=== PATIENT | male | born 1955 | race Caucasian/White ===

== ENCOUNTER 2017-02-27 13:11 | Day surgery (SDC) | payer OTHER ==
[~2017-02-27] VITALS: Ht 185.4 cm; Wt 95.1 kg
[2017-02-27] MEDS ORDERED: PROPOFOL 20 ML ONE (13:27)
[2017-02-27 13:59] VITALS: Ht 185.4 cm; Wt 95.1 kg
[2017-02-27] MEDS ORDERED: NO MEDS. (14:08)
--- NOTE | 2017-02-27 14:29 | OPPN ---
Date/Time of Note Date/Time of Note DATE: 02/27/17 TIME: 14:26 Proc Note GI Procedure Date 02/27/17 Indication: screening/surveillance Pre-procedure Diagnosis r/o colon polyps Post-procedure Diagnosis hemorrhoids Procedure Performed: Colonoscopy Surgeon see signature line Cake Icer none Anesthesia Type: MAC Anesthesiologist: GIA HICKS MD Tourniquet Time none EBL none Transfusion required none Biopsy 1: no0ne Grafts/Implants none Tubes/Drains none Complication(s) none Disposition: PACU Procedure Description colonoscopy done with MAC hemorrhoids noted ERICH VELEZ MD Feb 27, 2017 14:29
--- NOTE | 2017-02-27 14:29 | OPPN ---
Date/Time of Note Date/Time of Note DATE: 02/27/17 TIME: 14:26 Proc Note GI Procedure Date 02/27/17 Indication: screening/surveillance Pre-procedure Diagnosis r/o colon polyps Post-procedure Diagnosis hemorrhoids Procedure Performed: Colonoscopy Surgeon see signature line Geospatial Applications Developer none Anesthesia Type: MAC Anesthesiologist: GIA HICKS MD Tourniquet Time none EBL none Transfusion required none Biopsy 1: no0ne Grafts/Implants none Tubes/Drains none Complication(s) none Disposition: PACU Procedure Description colonoscopy done with MAC hemorrhoids noted ERICH VELEZ MD Feb 27, 2017 14:29
--- NOTE | 2017-02-27 14:29 | OPPN ---
Date/Time of Note Date/Time of Note DATE: 02/27/17 TIME: 14:26 Proc Note GI Procedure Date 02/27/17 Indication: screening/surveillance Pre-procedure Diagnosis r/o colon polyps Post-procedure Diagnosis hemorrhoids Procedure Performed: Colonoscopy Surgeon see signature line Language Translator none Anesthesia Type: MAC Anesthesiologist: GAI HICKS MD Tourniquet Time none EBL none Transfusion required none Biopsy 1: no0ne Grafts/Implants none Tubes/Drains none Complication(s) none Disposition: PACU Procedure Description colonoscopy done with MAC hemorrhoids noted ERICH VELEZ MD Feb 27, 2017 14:29
[2017-02-27 14:45] VITALS: BP 122/73; RESP 14
--- NOTE | 2017-02-28 04:12 | GILP ---
DATE OF PROCEDURE: PROCEDURE: Colonoscopy. PREOPERATIVE DIAGNOSIS: Screening colonoscopy to rule out colon polyps. POSTOPERATIVE DIAGNOSIS: Minimal to moderate degree of external hemorrhoids. No polyps noted. DESCRIPTION OF PROCEDURE: After the informed written consent was obtained, the patient was asked to lie on the left lateral side. Intravenous anesthesia was given by anesthesiologist, Dr. Ramirez. When the patient became somnolent, the Olympus video colonoscope was introduced into the rectum and scop e was advanced all the way to the cecum. Entire colon was thoroughly examined. No polyps or any ot her neoplastic process noted. At this time, the colonoscope was withdrawn from the cecum. On the w ay out, further careful evaluation was carried out. No mucosal abnormality detected. Retroflexion was performed. No internal hemorrhoids noted. When the scope was withdrawn, a moderate degree of e xternal hemorrhoids were noted and the procedure was terminated. PLAN: Recommend repeat colonoscopy in 10 years. Dictated By: ERICH PINTO/HARLAN Conf#: [id number] DID#: [id number]
== END 2017-02-27 17:36 | disposition home or self-care (01) ==
LOC: GIL 13:11
PROVIDERS: ATTEND Internal Medicine Gastroenterology
DX: Z12.11 Encounter for screening for malignant neoplasm of colon (principal); K64.4 Residual hemorrhoidal skin tags; E03.9 Hypothyroidism, unspecified
CPT/HCPCS: 45378; Z7610